=== PATIENT | female | born 1985 | race Caucasian/White ===

== ENCOUNTER 2015-12-10 11:09 | Outpatient (RCR) | payer OTHER | END 2016-03-09 | disposition home or self-care (01) | LOC: CARD 11:09 | PROVIDERS: ATTEND Nurse Practitioner Family | DX: R00.2 Palpitations (principal) | CPT/HCPCS: 93225; 93226 ==

== ENCOUNTER 2016-02-23 06:41 | Outpatient (RCR) | payer SELFPAY ==
[2016-02-03] VITALS (36 sets, daily range): BP systolic 77–124; BP diastolic 45–91
--- NOTE | 2016-02-04 09:52 | TILT TABLE TEST ---
PROCEDURE PHYSICIAN: OTILIO RUSH DATE OF PROCEDURE: 02/03/2016 CLINICAL DIAGNOSIS: Syncope. Baseline blood pressure was obtained. She was attached to continuous heart monitoring. She was made flat the tilt table and the table was tilted up to 70 degrees with the patient's head up. Heart rate was monitored continuously. Blood pressure was recorded every minute. Approximately 33 minutes into the study, she became dizzy and systolic blood pressure fell to under 60 mmHg. The table was immediately made flat and her legs were raised which immediately restored the blood pressure to normal level. During the episode, heart rate dropped to as low as 50 beats per minute but there were no long pauses. CONCLUSIONS: Tilt table study is positive for neurocardiogenic syncope (vasodepressor response). Job ID: [id number] Dictated Date: 02/03/2016 15:34:46 Singe Winder Date: 02/04/2016 09:40:46 / [facility] BLOOD
[~2016-02-23] VITALS: Ht 175.3 cm; Wt 66.2 kg
[~2016-02-23 06:41] MED LIST: NS IV 1000 ML 1,000 ML ONE
== END 2016-05-02 | disposition home or self-care (01) ==
LOC: CARD 06:41
PROVIDERS: ATTEND Internal Medicine Cardiovascular Disease
DX: R07.2 Precordial pain (principal); R55 Syncope and collapse; R00.2 Palpitations
CPT/HCPCS: 93660